=== PATIENT | male | born 1990 | race Caucasian/White ===

== ENCOUNTER → 2018-08-15 | Outpatient (REF) ==
[~2018-08-15] MED LIST: LOR7.5/325 PO; NO RTN MEDS
[2018-08-15 09:03] LABS: LDL CHOLESTEROL 89 mg/dl
== END ==
DX: Z02.9 Encounter for administrative examinations, unspecified (principal)

== ENCOUNTER → 2019-02-26 | Outpatient (CLI) | payer OTHER ==
[~2019-02-26] MED LIST changes: +ALBU8.5H IH; +FAMO40TA66 PO; +FEXO-67 PO; +FLUT16SP19 NS; +MONT10TA PO
== END ==
LOC: LAB 15:35
PROVIDERS: ATTEND Internal Medicine
DX: R10.32 Left lower quadrant pain (principal)
CPT/HCPCS: 81001

== ENCOUNTER → 2019-02-28 | Outpatient (CLI) | payer OTHER ==
--- NOTE | 2019-02-28 13:56 | RADIOLOGY IMAGING REPORT ---
FACILITY: [facility] PATIENT NAME: Shay Lion : 1990 MR: [id number] V: [id number] EXAM DATE: ORDERING PHYSICIAN: KATHARINE ALDRICH TECHNOLOGIST: Location: [facility] Patient: Shay Lion : 1990 Visit/Account:[id number] Date of Sevice: 02/28/2019 Exam type: US GROIN History: left groin pain Comparison: None Findings: Sonographic images were obtained of both groins with and without Valsalva maneuver. With the Valsalv a maneuver there appear to be bowel extending into the right groin likely related to an inguinal basim ia a similar finding was not identified on the left. IMPRESSION: 1. Findings are very suspicious for right inguinal hernia containing bowel Report Dictated By: Sabrina Nieves MD at 02/28/2019 1:48 PM Report E-Signed By: aSbrina Nieves MD at 02/28/2019 1:50 PM WSN:[id number]
== END ==
LOC: US 12:50
PROVIDERS: ATTEND Internal Medicine
DX: R10.32 Left lower quadrant pain (principal)
CPT/HCPCS: 76705

== ENCOUNTER 2019-04-01 00:15 | Day surgery (SDC) | payer OTHER ==
[2019-04-01] VITALS (11 sets, daily range): BP systolic 87–141; BP diastolic 61–86
[~2019-04-01] VITALS: Ht 182.9 cm; Wt 76.2 kg
[2019-04-01] MEDS ORDERED: DEXAMETHASONE SOD 4 MG/ML VIAL ONE (08:52)
[2019-04-01] MEDS ORDERED: SUGAMMADEX SOD 200 MG/2 ML SDV ONE (08:52)
[2019-04-01] MEDS ORDERED: ONDANSETRON 4 MG/2 ML VIAL ONE (08:52)
[2019-04-01] MEDS ORDERED: PROPOFOL EMUL(*) 10MG/ML 20 ML 20 ML ONE (08:52)
[2019-04-01] MEDS ORDERED: fentaNYL CITR 250 MCG/5 ML AMP ONE (08:52)
[2019-04-01] MEDS ORDERED: LIDOCAINE MPF 1% 5 ML VIAL ONE (08:52)
[2019-04-01] MEDS ORDERED: ROCURONIUM BROM 10 MG/ML 10 ML ONE (08:52)
[2019-04-01] MEDS ORDERED: KETAMINE HCL-NS 50 MG/5 ML SYR ONE (09:00)
[2019-04-01] MEDS: LIDOCAINE/SOD BICARB 8.4% SYR ID ONE ×2 (09:07→09:45)
[2019-04-01] MEDS: NORMOSOL R SOLN(*) 1000 ML BAG 1,000 ML IV PRN ×2 (09:08→15:00)
[2019-04-01] MEDS ORDERED: CLINDAMYCIN(*) 600 MG/NS 50 ML 50 ML IVPB ONE (10:00)
[2019-04-01] MEDS ORDERED: MIDAZOLAM 2 MG/2 ML VIAL IVP PRN (10:00)
[2019-04-01] MEDS ORDERED: FAMOTIDINE 20 MG TAB PO ONE (10:00)
[2019-04-01] MEDS ORDERED: LEVOFLOXACIN/D5W 750 MG/150 ML 150 ML IVPB ONE (10:00)
[2019-04-01] MEDS ORDERED: BUPIVACAINE/EPI 0.5% 50ML VIAL INFIL ONE (11:04)
[2019-04-01] MEDS ORDERED: TRAM-420 PO (12:54)
--- NOTE | 2019-04-01 12:58 | Short(Outpt) Discharge Summary ---
Discharge Summary Reason for Hosp/Final Diag: (1) Right inguinal hernia Hospital Course & Plan: pt presented for inguinal hernia repair. he tolerated the procedure well. he will be discharged home when criteria met. Departure Discharge to: Home Discharge Instructions Home Meds Active Scripts Tramadol Hcl (TRAMADOL HCL) 50 Mg Tablet, 50 MG PO Q4H PRN for PAIN, #20 TAB Prov:BARTOLOME BRITO 04/01/19 Montelukast Sodium (SINGULAIR) 10 Mg Tablet, 1 TAB PO QDAY, #30 TAB 3 Refills Prov:KATHARINE ALDRICH MD 02/19/19 Fluticasone Prop 50 Mcg Ns (FLONASE 50 MCG NS) 16 Gm [place].susp, 2 SPRAYS NS QDAY, #1 BOT 3 Refills Prov:KATHARINE ALDRICH MD 02/19/19 Fexofenadine Hcl (EMI ALLERGY) 180 Mg Tablet, 180 MG PO QDAY PRN for allergies, #30 TAB 3 Refills Prov:KATHARINE ALDRICH MD 02/19/19 Reported Medications Famotidine (FAMOTIDINE) 40 Mg Tablet, 40 MG PO QHS 02/19/19 Albuterol Sulfate 90 Mcg/Act (PROAIR HFA 90 MCG/ACT) 8.5 Gm Hfa.aer.ad, 2 PUFF IH Q4-6H PRN for SHORTNESS OF BREATH, INHALER 02/19/19 Discontinued Reported Medications [No Rtn Meds] No Conflict Check, 0 Refills 08/14/11 Diet: Regular Activity: No Heavy Lifting Special Instructions: no lifting more than 15 lbs for 3 wks. take stool softener while taking pain meds. ok to shower tomorrow. f/u dr. robin brito 2 wks ([phone]). BARTOLOME BRITO April 01, 2019 12:58
--- NOTE | 2019-04-01 12:59 | Post Operative Progress Note ---
Post Operative Progress Note Date: April 01, 2019 Time: 12:58 Surgeon: dr. robin brito Acls Specialist: none Anesthesia: gen, local Pre-Op Diagnosis: ing hernia Post-Op Diagnosis: same Findings: direct right ing hernia Procedure(s): robot hernia repair with mesh Complications: none Estimated Blood Loss: minimal BARTOLOME BRITO April 01, 2019 12:59
[2019-04-01] MEDS ORDERED: fentaNYL CITR 100 MCG/2 ML AMP ONE (13:16)
[2019-04-01] MEDS ORDERED: traMADol 50 MG TAB ONE (13:58)
[2019-04-01] MEDS ORDERED: HYDR-654 PO (17:15)
--- NOTE | 2019-04-02 07:46 | OPERATIVE REPORT 1 ---
EVENT DATE: April 01, 2019 SURGEON: Mono Cherry MD ANESTHESIOLOGIST: Pop Vazquez MD ANESTHESIA: General and local. POOL TECHNICIAN: None. PREOPERATIVE DIAGNOSIS Bilateral inguinal hernias. POSTOPERATIVE DIAGNOSIS Right inguinal hernia. PROCEDURE PERFORMED [*] FLUIDS IV crystalloids. ESTIMATED BLOOD LOSS Minimal. SPECIMENS None. COMPLICATIONS None. INDICATIONS This is a 28-year old male who presented with left groin pain for a couple of weeks. On physical exam, patient had at most very small inguinal hernias. Imaging showed an inguinal hernia on the right that contained a loop of bowel and no hernia on the left. Risks and benefits of the procedure were explained and consent was signed. DESCRIPTION OF PROCEDURE The patient was taken to the operating room and placed in the supine position. General anesthesia was administered per the Anesthesia team. The patient was prepped and draped in normal sterile fashion. Local anesthesia was injected into the dermis above the umbilicus and a small vertical incision was made. Umbilical stump was grasped and elevated. Veress needle was inserted. Pneumoperitoneum was achieved. 8 mm port was then placed after the Veress needle was removed. After injecting local analgesia under direct vision, an 8 mm left sided port and an 8 mm right sided port were placed. I inspected the abdomen. There was no injury upon entry. There was a direct hernia on the right. On the left, there was no significant hernia. At most, a couple very tiny dimples but not a true hernia. I placed mesh and the absorbable V-Loc stitch in the abdomen. The mesh was 15 x 10 cm. It was ProGrip. The robot was then docked. Peritoneal flap was created on the right. This was done with scissors. This was taken down to Reza's ligament and below the level of the ileopubic tract. Care was taken to protect the cord structures as well as the inferior epigastric vessels. There was a small direct hernia and a very small indirect hernia in this location. The mesh was made to lie flat. It covered the myopectineal orifice. Hemostasis was assured. Peritoneal flap was approximated with a running absorbable V-Loc stitch. Again, I inspected the left and there was no hernia to be repaired on the left. The robot was undocked. Ports were removed under direct vision. Hemostasis was assured. Pneumoperitoneum was relieved. Final port was removed. All skin incisions were closed with 4-0 Monocryl subcuticular stitches. More local analgesia was injected. Appropriate dressings were applied. Patient tolerated the procedure well. There were no complications. LEIDY
== END 2019-04-01 13:40 | disposition home or self-care (01) ==
LOC: OR 00:15
PROVIDERS: ATTEND Surgery
DX: K40.90 Unilateral inguinal hernia, without obstruction or gangrene, not specified as recurrent (principal)
CPT/HCPCS: 49650; C1781; J1100; J1956; J2001; J2250; J2405; J2704; J3010; J3490

== ENCOUNTER 2019-05-29 20:02 | Emergency (ER) | payer OTHER ==
[~2019-05-29 20:02] MED LIST changes: +HYDR-654 PO; +TRAM-420 PO
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
[2019-05-29 20:05] VITALS: BP 128/88
== END 2019-05-29 20:36 | disposition home or self-care (01) ==
LOC: ER 20:35
DX: S51.812A Laceration without foreign body of left forearm, initial encounter (principal); S60.512A Abrasion of left hand, initial encounter; V19.9XXA Pedal cyclist (driver) (passenger) injured in unspecified traffic accident, initial encounter
CPT/HCPCS: 99282